=== PATIENT | male | born 1960 | race Caucasian/White ===

== ENCOUNTER 2019-08-12 09:36 | Day surgery (SDC) | payer BC ==
[~2019-08-12] VITALS: Ht 188 cm; Wt 120.9 kg
[~2019-08-12 09:36] MED LIST: FLUT1DIS IH; FLUT9.9S NAS; MONT10TA6 PO
[2019-08-12] MEDS ORDERED: LACTATED RINGERS 1,000 ML IV SCH (10:11)
[2019-08-12] MEDS ORDERED: OMEP-110 PO (10:11)
[2019-08-12 10:12] VITALS: BP 156/90
[2019-08-12] MEDS ORDERED: PROPOFOL 50 ML ONE ×2 (12:29→13:40)
[2019-08-12] MEDS ORDERED: DIAZEPAM 5 MG/ML, 2ML IVPush PRN (12:30)
[2019-08-12] MEDS ORDERED: MEPERIDINE/PF 25MG/ML,1ML IVPush PRN (12:30)
[2019-08-12] MEDS ORDERED: ONDANSETRON ODT 8 MG PO PRN (12:30)
[2019-08-12] MEDS ORDERED: DIPHENHYDRAMINE 50 MG/ML, 1ML IVPush PRN (12:30)
[2019-08-12] MEDS ORDERED: hydrALAzine 20 MG/ML, 1ML IV PRN (12:30)
[2019-08-12] MEDS ORDERED: OXYcodone 5 MG/5 ML ORAL.SOL UDC PO PRN (12:30)
[2019-08-12] MEDS ORDERED: METOPROLOL 1 MG/ML, 5ML IV PRN (12:30)
[2019-08-12] MEDS ORDERED: FENTANYL PF 100 MCG/2ML IV PRN (12:30)
[2019-08-12] MEDS ORDERED: MORPHINE SULFATE 4 MG/ML, 1ML IVPush PRN (12:30)
[2019-08-12] MEDS ORDERED: ONDANSETRON 2MG/ML, 2ML IV PRN (12:30)
[2019-08-12] MEDS ORDERED: EPHEDRINE 50 MG/ML, 1ML IVPush PRN (12:30)
[2019-08-12] MEDS ORDERED: EPHEDRINE 50 MG/ML, 1ML IM PRN (12:30)
[2019-08-12] MEDS ORDERED: PROMETHAZINE 25 MG/ML, 1ML IV PRN (12:30)
== END 2019-08-12 15:40 | disposition home or self-care (01) ==
LOC: OUT 09:36
PROVIDERS: ATTEND Internal Medicine
DX: D12.0 Benign neoplasm of cecum (principal); J45.909 Unspecified asthma, uncomplicated; K21.9 Gastro-esophageal reflux disease without esophagitis; I10 Essential (primary) hypertension; Z86.010 Personal history of colon polyps; Z98.890 Other specified postprocedural states
CPT/HCPCS: 45381; 45385; 88305; A4648; J2704; J7120

== ENCOUNTER 2019-08-13 13:18 | Emergency (ER) | payer BC ==
[~2019-08-13] VITALS: Ht 188 cm; Wt 128.8 kg
[~2019-08-13 13:18] MED LIST changes: +OMEP-110 PO
--- NOTE | 2019-08-13 14:54 | NUR ---
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
--- NOTE | 2019-08-13 15:00 | NUR ---
assumed care of pt. pt here for rectal bleeding s/p colonoscopy yesterday. pt reports that he has had 3 procedures in the last 6 months. denies pain. no LOC no weakness or dizziness. pt is pink warm and dry. ambulatory without difficulty. So at bedside
--- NOTE | 2019-08-13 16:25 | NUR ---
Dr Boucher has been to bedside for recheck. pt resting ion positin of comfort. no apparent distress
[2019-08-13 16:42] VITALS: BP 151/80
== END 2019-08-13 17:18 | disposition home or self-care (01) ==
LOC: ED 16:45
DX: K91.840 Postprocedural hemorrhage of a digestive system organ or structure following a digestive system procedure (principal)
CPT/HCPCS: 99281

== ENCOUNTER → 2020-05-06 | Outpatient (CLI) | payer BC | END | disposition home or self-care (01) | LOC: STAR 13:13 | PROVIDERS: ATTEND Internal Medicine Geriatric Medicine | DX: Z01.818 Encounter for other preprocedural examination (principal); Z20.828 Contact with and (suspected) exposure to other viral communicable diseases; K63.5 Polyp of colon | CPT/HCPCS: 36415; 87635; 93005 ==

== ENCOUNTER 2020-05-11 08:14 | Day surgery (SDC) | payer BC ==
[~2020-05-11] VITALS: Ht 188 cm; Wt 111.3 kg
[2020-05-11] MEDS ORDERED: PROMETHAZINE 25 MG/ML, 1ML IVPush PRN (08:30)
[2020-05-11] MEDS ORDERED: OXYcodone 5 MG/5 ML ORAL.SOL UDC PO PRN (08:30)
[2020-05-11] MEDS ORDERED: LABETALOL 5MG/ML, 20ML IV PRN (08:30)
[2020-05-11] MEDS ORDERED: hydrALAzine 20 MG/ML, 1ML IV PRN (08:30)
[2020-05-11] MEDS ORDERED: ONDANSETRON 2MG/ML, 2ML IVPush PRN (08:30)
[2020-05-11] MEDS ORDERED: ACETAMINOPHEN 325 MG TABLET PO PRN (08:30)
[2020-05-11] MEDS ORDERED: HYDROmorphone 1 MG/ML, 1ML INJ IVPush PRN (08:30)
[2020-05-11] MEDS ORDERED: FENTANYL PF 100 MCG/2ML IV PRN (08:30)
[2020-05-11 08:42] VITALS: BP 153/88
[2020-05-11] MEDS ORDERED: LACTATED RINGERS 1,000 ML IV SCH (09:00)
[2020-05-11] MEDS ORDERED: CHLORHEXIDINE 15 ML UDC MM ONE (09:00)
[2020-05-11] MEDS ORDERED: MIDAZOLAM 1 MG/ML, 2ML ONE (09:37)
[2020-05-11] MEDS ORDERED: FENTANYL PF 100 MCG/2ML ONE (09:37)
[2020-05-11] MEDS ORDERED: PROPOFOL 10 MG/ML, 20ML ONE ×3 (09:59→10:40)
== END 2020-05-11 12:25 | disposition home or self-care (01) ==
LOC: OUT 08:14
PROVIDERS: ATTEND Internal Medicine Geriatric Medicine
DX: Z09 Encounter for follow-up examination after completed treatment for conditions other than malignant neoplasm (principal); D12.0 Benign neoplasm of cecum; J45.909 Unspecified asthma, uncomplicated; K21.9 Gastro-esophageal reflux disease without esophagitis; Z88.1 Allergy status to other antibiotic agents; Z88.8 Allergy status to other drugs, medicaments and biological substances; Z72.89 Other problems related to lifestyle; Z79.899 Other long term (current) drug therapy; Z98.890 Other specified postprocedural states
CPT/HCPCS: 45381; 45385; 88305; A4648; J2250; J2704; J3010; J7120

== ENCOUNTER → 2020-06-28 | Outpatient (CLI) | payer BC ==
[2020-06-28 11:41] LABS: BASOPHILS % (AUTO) 1 % (0-1); EOSINOPHILS % (AUTO) 2 % (1-7); LYMPHOCYTES % (AUTO) 26 % (22-44); MD NO; MEAN CORPUSCULAR HEMOGLOBIN 30.2 pg (27.5-34.5); MEAN PLATELET VOLUME 7.7 fL (7.4-10.4); MONOCYTES % (AUTO) 10 % (2-9); NEUTROPHILS % (AUTO) 62 % (42-75); PLATELET COUNT 278 x10^3/uL (130-400); RED BLOOD COUNT 5.56 x10^6/uL (4.38-5.82); RED CELL DISTRIBUTION WIDTH 13.1 % (9.4-14.8)
[2020-06-28 11:44] LABS: ALANINE AMINOTRANSFERASE 35 U/L (12-78); ALBUMIN 3.9 g/dL (3.4-5.0); ANION GAP 6 mmol/L (5-15); CALCIUM 8.8 mg/dL (8.5-10.1); CHLORIDE 105 mmol/L (98-107); CREATININE 1.15 mg/dL (0.7-1.3)
[2020-06-28 11:46] LABS: ALKALINE PHOSPHATASE 49 U/L (45-117); BILIRUBIN,TOTAL 0.4 mg/dL (0.2-1.0); TOTAL PROTEIN 7.8 g/dL (6.4-8.2)
== END | disposition home or self-care (01) ==
LOC: STAR 09:58
PROVIDERS: ATTEND Surgery
DX: Z01.818 Encounter for other preprocedural examination (principal); I49.3 Ventricular premature depolarization; Z20.828 Contact with and (suspected) exposure to other viral communicable diseases
CPT/HCPCS: 80053; 85025; 87635; 93005

== ENCOUNTER 2020-07-02 08:05 | Inpatient (IN) | payer BC ==
[~2020-07-02] VITALS: Ht 188 cm; Wt 112.4 kg
[~2020-07-02 08:05] MED LIST changes: +BUPIVACAINE/PF-EPI 0.5% 1:200K ONE; +EPHEDRINE 50 MG/ML, 1ML IVPush PRN; +FENTANYL PF 100 MCG/2ML IV PRN; +HYDROmorphone 1 MG/ML, 1ML INJ IVPush PRN; +INDOCYANINE GREEN 25 MG VIAL ONE; +ONDANSETRON 2MG/ML, 2ML IVPush PRN; +OXYcodone 5 MG/5 ML ORAL.SOL UDC PO PRN; +PROMETHAZINE 25 MG/ML, 1ML IVPush PRN
[2020-07-02] MEDS ORDERED: CHLORHEXIDINE 15 ML UDC MM STA (08:17)
[2020-07-02] MEDS ORDERED: LACTATED RINGERS 1,000 ML IV SCH (08:30)
[2020-07-02] MEDS ORDERED: ACETAMINOPHEN 500 MG TABLET PO ONE (08:30)
[2020-07-02] MEDS ORDERED: CHLORHEXIDINE 15 ML UDC ONE (08:33)
[2020-07-02] MEDS ORDERED: MIDAZOLAM 1 MG/ML, 2ML ONE (09:31)
[2020-07-02] MEDS ORDERED: FENTANYL PF 250 MCG/5ML ONE (09:31)
[2020-07-02] MEDS ORDERED: ROCURONIUM 10MG/ML,5ML ONE (09:33)
[2020-07-02] MEDS ORDERED: CEFAZOLIN 1,000 MG ONE (09:33)
[2020-07-02] MEDS ORDERED: LIDOCAINE-MPF 2% ,5ML ONE ×2 (09:33→11:01)
[2020-07-02] MEDS ORDERED: ONDANSETRON 2MG/ML, 2ML ONE ×2 (09:33→13:35)
[2020-07-02] MEDS ORDERED: SUCCINYLCHOLINE 20 MG/ML, 10ML ONE (09:33)
[2020-07-02] MEDS ORDERED: PROPOFOL 10 MG/ML, 20ML ONE (09:33)
[2020-07-02] MEDS ORDERED: SODIUM CHLORIDE 0.9% PF 10ML ONE (09:33)
[2020-07-02] MEDS ORDERED: EPINEPHRINE 1 MG/ML, 1ML ONE (10:00)
[2020-07-02] MEDS ORDERED: BUPIVACAINE/PF 0.25% ONE ×2 (10:00)
[2020-07-02] MEDS ORDERED: DEXAMETHASONE 4 MG/ML, 5ML ONE (10:00)
[2020-07-02] MEDS ORDERED: KETOROLAC 30 MG/1 ML ONE (10:32)
[2020-07-02] MEDS ORDERED: METRONIDAZOLE PMX 500MG/100ML 100 ML ONE (10:33)
[2020-07-02] MEDS ORDERED: GLYCOPYRROLATE 0.2MG/1ML, 5ML ONE (11:00)
[2020-07-02] MEDS ORDERED: SUGAMMADEX 200 MG/2 ML IVPush ONE (11:01)
[2020-07-02] MEDS ORDERED: FENTANYL PF 100 MCG/2ML ONE ×2 (12:54→13:46)
[2020-07-02] MEDS ORDERED: LABETALOL 5MG/ML, 20ML ONE (13:46)
[2020-07-02] MEDS: LABETALOL 5MG/ML, 20ML IV PRN ×2 (13:55→14:24)
[2020-07-02] MEDS ORDERED: PROMETHAZINE 25 MG/ML, 1ML ONE (14:05)
[2020-07-02] MEDS ORDERED: hydrALAzine 20 MG/ML, 1ML ONE (14:40)
[2020-07-02] MEDS: hydrALAzine 20 MG/ML, 1ML IV PRN ×2 (14:44→15:15)
[2020-07-02] MEDS ORDERED: DIPHENHYDRAMINE 50 MG/ML, 1ML IVPush PRN (16:30)
[2020-07-02] MEDS ORDERED: OXYcodone IR 5MG TABLET PO PRN (16:30)
[2020-07-02] MEDS ORDERED: ONDANSETRON 2MG/ML, 2ML IV PRN (16:30)
[2020-07-02] MEDS ORDERED: DIPHENHYDRAMINE 25 MG CAPSULE PO PRN (16:30)
[2020-07-02] MEDS: GABAPENTIN 300 MG CAPSULE PO SCH ×2 (17:34→20:28)
[2020-07-02] MEDS: ACETAMINOPHEN 500 MG TABLET PO SCH ×2 (17:34→23:45)
[2020-07-02] MEDS: D5%-0.45NACL+KCL 20MEQ 1,000 ML IV SCH (20:30)
[2020-07-02 20:49] VITALS: BP 130/84
[2020-07-03 00:10] VITALS: BP 138/88
[2020-07-03 03:39] LABS: ALBUMIN 3.3 g/dL (3.4-5.0); ANION GAP 5 mmol/L (5-15); CALCIUM 8.9 mg/dL (8.5-10.1); CHLORIDE 105 mmol/L (98-107); CREATININE 1.43 mg/dL (0.7-1.3)
[2020-07-03 04:26] LABS: BASOPHILS % (AUTO) 0 % (0-1); EOSINOPHILS % (AUTO) 0 % (1-7); LYMPHOCYTES % (AUTO) 6 % (22-44); MEAN CORPUSCULAR HEMOGLOBIN 30.1 pg (27.5-34.5); MEAN PLATELET VOLUME 7.9 fL (7.4-10.4); MONOCYTES % (AUTO) 7 % (2-9); NEUTROPHILS % (AUTO) 87 % (42-75); PLATELET COUNT 326 x10^3/uL (130-400); RED BLOOD COUNT 5.19 x10^6/uL (4.38-5.82); RED CELL DISTRIBUTION WIDTH 13.5 % (9.4-14.8)
[2020-07-03 04:27] LABS: MD NO
[2020-07-03] MEDS: ACETAMINOPHEN 500 MG TABLET PO SCH ×4 (04:30→22:21)
[2020-07-03 05:24] VITALS: BP 146/77
[2020-07-03 07:35] VITALS: BP 151/76
[2020-07-03] MEDS: FLUTICASONE INH SCH (09:00)
[2020-07-03] MEDS: SALMETEROL INH SCH (09:00)
[2020-07-03] MEDS: [UNRECOGNIZED DRUG - OTHER] INH SCH (09:00)
[2020-07-03] MEDS ORDERED: ENOXAPARIN 40 MG/0.4 ML SQ SCH (09:00)
[2020-07-03] MEDS: FLUTICASONE NASAL SPRAY 16GM NAS SCH (09:00)
[2020-07-03] MEDS: GABAPENTIN 300 MG CAPSULE PO SCH ×3 (10:10→20:32)
[2020-07-03] MEDS: MONTELUKAST 10 MG TABLET PO SCH (10:10)
[2020-07-03] MEDS: OMEPRAZOLE 20 MG CAPSULE.DR PO SCH (10:11)
[2020-07-03] MEDS: D5%-0.45NACL+KCL 20MEQ 1,000 ML IV SCH ×2 (10:12→22:57)
[2020-07-03 12:39] VITALS: BP 148/73
[2020-07-03 20:19] VITALS: BP 134/72
[2020-07-03] MEDS ORDERED: CALCIUM CARBONATE 500 MG TAB.CHEW ONE (21:50)
[2020-07-03] MEDS ORDERED: CALCIUM CARBONATE 500 MG TAB.CHEW PO PRN (22:00)
[2020-07-04 03:25] VITALS: BP 138/72
[2020-07-04 03:44] LABS: BASOPHILS % (AUTO) 0 % (0-1); EOSINOPHILS % (AUTO) 1 % (1-7); LYMPHOCYTES % (AUTO) 18 % (22-44); MEAN CORPUSCULAR HEMOGLOBIN 30.3 pg (27.5-34.5); MEAN CORPUSCULAR HGB CONC 34.3 g/dL (33.2-36.2); MEAN PLATELET VOLUME 7.5 fL (7.4-10.4); MONOCYTES % (AUTO) 9 % (2-9); NEUTROPHILS % (AUTO) 72 % (42-75); PLATELET COUNT 279 x10^3/uL (130-400); RED BLOOD COUNT 4.55 x10^6/uL (4.38-5.82)
[2020-07-04 03:52] LABS: ALBUMIN 3.2 g/dL (3.4-5.0); CALCIUM 9.1 mg/dL (8.5-10.1); CHLORIDE 101 mmol/L (98-107)
[2020-07-04 03:59] LABS: CREATININE 1.19 mg/dL (0.7-1.3)
[2020-07-04 04:05] LABS: ANION GAP 4 mmol/L (5-15)
[2020-07-04 04:47] LABS: MD MORPH REVIEW ONLY
[2020-07-04 04:48] LABS: <RBC MORPHOLOGY> NORMAL
[2020-07-04 04:49] LABS: <PLATELET ESTIMATE> ADEQUATE; <PLT MORPHOLOGY> NORMAL PLT MORPH
[2020-07-04] MEDS: ACETAMINOPHEN 500 MG TABLET PO SCH (05:07)
[2020-07-04] MEDS ORDERED: SODIUM CHLORIDE 0.9%, 500ML IVBOLUS ONE (07:00)
[2020-07-04 07:44] VITALS: BP 129/81
[2020-07-04] MEDS: [UNRECOGNIZED DRUG - OTHER] INH SCH (08:24)
[2020-07-04] MEDS: SALMETEROL INH SCH (08:24)
[2020-07-04] MEDS: FLUTICASONE NASAL SPRAY 16GM NAS SCH (08:24)
[2020-07-04] MEDS: FLUTICASONE INH SCH (08:24)
[2020-07-04] MEDS: MONTELUKAST 10 MG TABLET PO SCH (08:26)
[2020-07-04] MEDS: OMEPRAZOLE 20 MG CAPSULE.DR PO SCH (08:26)
[2020-07-04] MEDS: GABAPENTIN 300 MG CAPSULE PO SCH (08:26)
[2020-07-04] MEDS ORDERED: OXYC5CAP2 PO (08:39)
[2020-07-04] MEDS ORDERED: GABA300C PO (08:42)
== END 2020-07-04 10:10 | disposition home or self-care (01) | DRG 331 ==
LOC: ORIP 08:05 → 4NE 15:49 → DCLOUNGE 07-04 10:05
PROVIDERS: ADMIT Surgery; ATTEND Surgery
PROC: 8E0W4CZ Robotic Assisted Procedure of Trunk Region, Percutaneous Endoscopic Approach (ICD-10-PCS; 2020-07-02)
PROC: 0DTF4ZZ Resection of Right Large Intestine, Percutaneous Endoscopic Approach (ICD-10-PCS; principal; 2020-07-02 10:00)
DX: K63.5 Polyp of colon (principal); Z88.8 Allergy status to other drugs, medicaments and biological substances
CPT/HCPCS: 36415; J3490; 80048; 82040; 85025; 86140; 86850; 86900; 88307; G0378; J0171; J0690; J1100; J1650; J1885; J2250; J2405; J2550; J2704; J3010; J0330; J0360; J3480; J7040; Q0163